=== PATIENT | male | born 1995 | race Caucasian/White ===

== ENCOUNTER 2021-04-04 17:46 | Outpatient (REF) | payer BC, SELFPAY ==
[2021-04-06 11:01] LABS: COVID-19 RT-PCR UVMMC Result Negative (Negative)
== END 2021-04-04 17:47 | disposition home or self-care (01) ==
LOC: LBN 17:46
PROVIDERS: Visit Provider Family Medicine
DX: Z20.822 Contact with and (suspected) exposure to COVID-19 (principal); J06.9 Acute upper respiratory infection, unspecified
CPT/HCPCS: U0003